=== PATIENT | male | born 1970 | race Two or more races ===

== ENCOUNTER 2021-03-03 10:31 | Inpatient (IN) | payer MEDICAID ==
[2021-03-03] VITALS (42 sets, daily range): BP systolic 91–160; BP diastolic 56–130
[~2021-03-03] VITALS: Ht 167.6 cm; Wt 86.0 kg
[2021-03-03] MEDS ORDERED: MIDAZOLAM HCL 5 MG/ML-1ML VIAL ONE (10:43)
[2021-03-03] MEDS ORDERED: MIDAZOLAM DRIP 50 mg/50mL 50 ML IV ONE ×2 (10:47→12:32)
[2021-03-03] MEDS ORDERED: SODIUM CHL 0.9% 50 ML ONE (10:52)
[2021-03-03] MEDS ORDERED: ANGIOMAX 250 MG VIAL IV ONE (10:52)
[2021-03-03] MEDS ORDERED: METOPROLOL TARTRATE 1MG/1ML-5ML VIAL IV ONE (10:54)
[2021-03-03] MEDS ORDERED: HEPARIN SODIUM (PORCINE) 5000 UNITS/ML 1ML VIAL ONE (10:55)
[2021-03-03] MEDS ORDERED: IOHEXOL 350 MG/ML 100ML IJ ONE (10:59)
[2021-03-03] MEDS ORDERED: EPINEPHrine HCL 1 MG/10 ML SYRG ONE (10:59)
[2021-03-03] MEDS ORDERED: LIDOCAINE 2%HCL (LOCAL ANESTH.) INJ 20ML MDV ONE (10:59)
[2021-03-03 11:00] LABS: Hematocrit 47.5 % (41.0-53.0); Hemoglobin 15.8 g/dL (13.5-17.5); Mean Corpuscular Hemoglobin 28.1 pg (28.0-32.0); Mean Corpuscular Hgb Conc. 33.2 g/dL (32.0-36.0); Mean Corpuscular Volume 84.6 fL (80.0-100.0); Red Blood Cells 5.61 10^6/uL (4.5-5.90); Red Cell Distribution Width 13.3 % (11.8-14.3); White Blood Cell 8.4 10^3/uL (4.4-10.8)
[2021-03-03] MEDS ORDERED: LIDOCAINE 4MG/ML IV SOLN 500 ML IV SCH (11:00)
[2021-03-03] MEDS ORDERED: ATROPINE SULF 1 MG/10ml SYR ONE (11:00)
[2021-03-03 11:03] LABS: Band Neutrophils % (manual) 0; Basophils % (manual) 0 (0.0-2.0); Blast Cells 0; Metamyelocytes % 0; Myelocytes % 0; Promyelocytes % 0
[2021-03-03 11:12] LABS: Albumin 3.9 g/dL (3.4-5.0); Anion Gap 10 (5-15); Blood Urea Nitrogen 15 mg/dL (7-18); Carbon Dioxide 25 mmol/L (21-32); Chloride 107 mmol/L (98-107); Glucose 180 mg/dL (74-106); Magnesium 2.7 mg/dL (1.6-2.6); Potassium 3.2 mmol/L (3.5-5.1); Sodium 142 mmol/L (136-145)
[2021-03-03 11:15] LABS: Lactic Acid w/Reflex 4.3 mmol/L (0.4-2.0)
[2021-03-03 11:18] LABS: Alanine Aminotransferase 69 U/L (16-61); Alkaline Phosphatase 88 U/L (45-117); Aspartate Aminotransferase 28 U/L (15-37); BUN/Creatinine Ratio 12.9; Bilirubin, Total 0.5 mg/dL (0.2-1.0); GFR African American 86 mL/min; GFR Non-African American 71 mL/min; Total Protein 7.4 g/dL (6.4-8.2)
[2021-03-03] MEDS ORDERED: HYDROmorphone HCL 2 MG/ML VL ONE (11:23)
[2021-03-03 11:34] LABS: Eosinophils % (manual) 1 (0-7); Lymphocytes % (manual) 48 (10.0-50.0); Monocytes % (manual) 6 (0-12); Reactive Lymphocytes 8
[2021-03-03] MEDS ORDERED: TICAGRELOR 90 MG TAB ONE (11:36)
[2021-03-03] MEDS ORDERED: metroNIDAZOLE 500MG/100ML 100 ML IV SCH ×2 (12:00→14:00)
[2021-03-03] MEDS ORDERED: MORPHINE SULFATE INJECTION 2 MG/ML SYRG IV PRN (14:00)
[2021-03-03] MEDS ORDERED: ACETAMINOPHEN 325 MG TAB PO PRN (14:00)
[2021-03-03] MEDS ORDERED: DEXTROSE (50%) 50ML SYRG IV PRN (14:00)
[2021-03-03] MEDS ORDERED: PIPERACILLIN-TAZO 4.5GM 100 ML IV SCH (14:00)
[2021-03-03] MEDS ORDERED: NITROGLYCERIN 0.4 MG SL TAB SL PRN (14:00)
[2021-03-03] MEDS ORDERED: ONDANSETRON HCL 4 MG/2 ML VIAL IV PRN (14:00)
[2021-03-03] MEDS ORDERED: MAGNESIUM SULFATE 1GM/100ML 100 ML IV SCH (14:00)
[2021-03-03] MEDS: MIDAZOLAM DRIP 50 mg/50mL 50 ML IV SCH ×2 (14:12→21:00)
[2021-03-03] MEDS: fentaNYL Drip 2500mCg/250mlNS 250 ML IV SCH (14:48)
[2021-03-03] MEDS: PIPERACILLIN-TAZO 4.5GM 100 ML IV SCH ×2 (14:57→22:20)
[2021-03-03] MEDS: D5W/SOD CHL 0.45%/KCL 20MEQ 1,000 ML IV SCH (14:57)
[2021-03-03] MEDS ORDERED: POTASSIUM CHL 20MEQ/100ML 100 ML IV ONE ×2 (15:27→15:30)
[2021-03-03] MEDS: ACCU-CHEK COMFORT CURVE STRIP VI SCH ×2 (17:34→22:25)
[2021-03-03] MEDS: InsuLIN REG 1unit/0.01ml Soln (100units/ml) SC SCH ×2 (18:39→22:18)
[2021-03-03] MEDS ORDERED: ATORVASTATIN 20 MG TAB PO SCH (22:00)
[2021-03-03] MEDS: TICAGRELOR 90 MG TAB PO SCH (22:17)
[2021-03-03] MEDS: METOPROLOL TARTRATE 25 MG TAB PO SCH (22:18)
[2021-03-04] VITALS (85 sets, daily range): BP systolic 80–182; BP diastolic 52–111
[2021-03-04] MEDS: NOREPINEPHRINE 8 MG/250ML KIT 250 ML IV SCH (03:52)
[2021-03-04 04:33] LABS: Basophils # (auto) 0 10 ^3/uL (0-0.2); Basophils % (auto) 0.3 % (0.0-2.0); Eosinophils # (auto) 0 10 ^3/uL (0-0.8); Eosinophils % (auto) 0.3 % (0.0-7.0); Hematocrit 42.2 % (41.0-53.0); Hemoglobin 13.8 g/dL (13.5-17.5); Lymphocytes # (auto) 1.7 10 ^3/uL (0.4-5.4); Lymphocytes % (auto) 18.5 % (10.0-50.0); Mean Corpuscular Hemoglobin 27.7 pg (28.0-32.0); Mean Corpuscular Hgb Conc. 32.8 g/dL (32.0-36.0); Mean Corpuscular Volume 84.6 fL (80.0-100.0); Monocytes % (auto) 10.8 % (0.0-12.0); Neutrophils # (auto) 6.6 10 ^3/uL (1.6-8.6); Neutrophils % (auto) 70.1 % (37.0-80.0); Nucleated Red Blood Cells % 0.1 %; Red Blood Cells 4.99 10^6/uL (4.5-5.90); Red Cell Distribution Width 13.3 % (11.8-14.3); White Blood Cell 9.4 10^3/uL (4.4-10.8)
[2021-03-04 05:03] LABS: Potassium 3.5 mmol/L (3.5-5.1)
[2021-03-04 05:15] LABS: BUN/Creatinine Ratio 9.6; Calcium 8.3 mg/dL (8.5-10.1)
[2021-03-04] MEDS: ACCU-CHEK COMFORT CURVE STRIP VI SCH ×4 (05:50→23:26)
[2021-03-04] MEDS: InsuLIN REG 1unit/0.01ml Soln (100units/ml) SC SCH ×4 (05:51→23:24)
[2021-03-04] MEDS: PIPERACILLIN-TAZO 4.5GM 100 ML IV SCH (05:52)
[2021-03-04] MEDS: D5W/SOD CHL 0.45%/KCL 20MEQ 1,000 ML IV SCH (07:59)
[2021-03-04] MEDS: LISINOPRIL 5 MG TAB PO SCH (09:54)
[2021-03-04] MEDS: METOPROLOL TARTRATE 25 MG TAB PO SCH ×2 (10:00→21:17)
[2021-03-04] MEDS: FAMOTIDINE (10MG/ML) 2ML VL IV SCH (10:20)
[2021-03-04] MEDS: ASPirin 81 mg TAB PO SCH (10:20)
[2021-03-04] MEDS: TICAGRELOR 90 MG TAB PO SCH ×2 (10:20→21:13)
[2021-03-04] MEDS: SODIUM CHLORIDE 0.9% 1,000 ML IV SCH ×2 (13:34→23:27)
[2021-03-04] MEDS: DOXYCYCLINE 100MG/250ML 250 ML IV SCH ×3 (13:43→23:40)
[2021-03-04] MEDS: fentaNYL Drip 2500mCg/250mlNS 250 ML IV SCH (13:47)
[2021-03-04] MEDS: HEPARIN SODIUM (PORCINE) 5000 UNITS/ML 1ML VIAL SC SCH (21:18)
[2021-03-04] MEDS ORDERED: ATORVASTATIN 20 MG TAB PO SCH (22:00)
[2021-03-05] VITALS (17 sets, daily range): BP systolic 100–124; BP diastolic 68–93
[2021-03-05] MEDS: NOREPINEPHRINE 8 MG/250ML KIT 250 ML IV SCH (03:30)
[2021-03-05 04:53] LABS: Basophils # (auto) 0 10 ^3/uL (0-0.2); Basophils % (auto) 0.4 % (0.0-2.0); Eosinophils # (auto) 0 10 ^3/uL (0-0.8); Eosinophils % (auto) 0.3 % (0.0-7.0); Hematocrit 39.7 % (41.0-53.0); Hemoglobin 13.5 g/dL (13.5-17.5); Lymphocytes # (auto) 1.8 10 ^3/uL (0.4-5.4); Lymphocytes % (auto) 22.3 % (10.0-50.0); Mean Corpuscular Hemoglobin 28.6 pg (28.0-32.0); Mean Corpuscular Hgb Conc. 33.9 g/dL (32.0-36.0); Mean Corpuscular Volume 84.4 fL (80.0-100.0); Monocytes # (auto) 0.8 10 ^3/uL (0-1.3); Monocytes % (auto) 9.5 % (0.0-12.0); Neutrophils # (auto) 5.4 10 ^3/uL (1.6-8.6); Neutrophils % (auto) 67.5 % (37.0-80.0); Red Blood Cells 4.71 10^6/uL (4.5-5.90); Red Cell Distribution Width 13.2 % (11.8-14.3)
[2021-03-05 05:13] LABS: Potassium 3.7 mmol/L (3.5-5.1)
[2021-03-05 05:19] LABS: BUN/Creatinine Ratio 14.7; Calcium 8.4 mg/dL (8.5-10.1)
[2021-03-05] MEDS: ACCU-CHEK COMFORT CURVE STRIP VI SCH ×3 (06:00→18:25)
[2021-03-05] MEDS: InsuLIN REG 1unit/0.01ml Soln (100units/ml) SC SCH ×3 (06:00→18:00)
[2021-03-05] MEDS: ASPirin 81 mg TAB PO SCH (09:47)
[2021-03-05] MEDS: FAMOTIDINE (10MG/ML) 2ML VL IV SCH (09:47)
[2021-03-05] MEDS: TICAGRELOR 90 MG TAB PO SCH (09:47)
[2021-03-05] MEDS: HEPARIN SODIUM (PORCINE) 5000 UNITS/ML 1ML VIAL SC SCH (09:48)
[2021-03-05] MEDS: LISINOPRIL 5 MG TAB PO SCH (09:48)
[2021-03-05] MEDS: METOPROLOL TARTRATE 25 MG TAB PO SCH (09:48)
[2021-03-05] MEDS ORDERED: TICA90TA PO (10:35)
[2021-03-05] MEDS ORDERED: ASPI1CHW15 PO (10:35)
[2021-03-05] MEDS ORDERED: MET25T PO (10:35)
[2021-03-05] MEDS ORDERED: LISI-275 PO (10:35)
[2021-03-05] MEDS ORDERED: ATOR20TA50 PO (10:35)
[2021-03-05] MEDS ORDERED: DOXY-338 PO (10:35)
== END 2021-03-05 21:25 | disposition home or self-care (01) | DRG 174 ==
LOC: EDBD 10:31 → ER 10:31 → TELE 13:49 → ICU WEST 15:45 → TELE-WESTW 03-05 15:00
PROVIDERS: ADMIT Hospitalist; ATTEND Hospitalist
PROC: 5A12012 Performance of Cardiac Output, Single, Manual (ICD-10-PCS; principal; 2021-03-03)
PROC: 0BH17EZ Insertion of Endotracheal Airway into Trachea, Via Natural or Artificial Opening (ICD-10-PCS; 2021-03-03)
PROC: 5A1945Z Respiratory Ventilation, 24-96 Consecutive Hours (ICD-10-PCS; 2021-03-03)
PROC: 027034Z Dilation of Coronary Artery, One Artery with Drug-eluting Intraluminal Device, Percutaneous Approach (ICD-10-PCS; 2021-03-03)
PROC: 4A023N7 Measurement of Cardiac Sampling and Pressure, Left Heart, Percutaneous Approach (ICD-10-PCS; 2021-03-03)
PROC: B2111ZZ Fluoroscopy of Multiple Coronary Arteries using Low Osmolar Contrast (ICD-10-PCS; 2021-03-03)
DX: I21.09 ST elevation (STEMI) myocardial infarction involving other coronary artery of anterior wall (principal); I46.9 Cardiac arrest, cause unspecified; J96.01 Acute respiratory failure with hypoxia; N17.9 Acute kidney failure, unspecified; Z20.822 Contact with and (suspected) exposure to COVID-19; I48.91 Unspecified atrial fibrillation; R73.9 Hyperglycemia, unspecified; E87.6 Hypokalemia; E78.5 Hyperlipidemia, unspecified; I10 Essential (primary) hypertension; I25.10 Atherosclerotic heart disease of native coronary artery without angina pectoris; J98.11 Atelectasis
CPT/HCPCS: 36415; 36600; 71045; 80048; 80053; 80061; 82805; 82962; 83036; 83605; 83735; 84484; 85007; 85025; 85027; 85610; 85730; 86850; 86900; 86901; 87040; 87070; 87081; 87205; 87426; 92928; 92950; 93005; 93458; 94003; 96361; 96365; 99152; 99153; 99291; C1874; G0378; J2250; J2405; J2543; J3480; J3490